=== PATIENT | male | born 1980 | race Caucasian/White ===

== ENCOUNTER 2017-09-21 08:19 | Emergency (ER) | payer SELFPAY ==
[2017-09-21 08:23] VITALS: BP 165/96
[2017-09-21] MEDS ORDERED: ACYCLOVIR 400 MG TAB PO ONE (08:50)
[2017-09-21] MEDS ORDERED: predniSONE 20 MG TAB PO ONE (08:50)
--- NOTE | 2017-09-21 08:52 | EDPHY ---
H & P Stated Complaint: RASH SOLE L FOOT, R SHOULDER PAIN Time Seen by Provider: 09/21/17 08:45 HPI/ROS: CHIEF COMPLAINT: Ft rash, right shoulder pain HISTORY OF PRESENT ILLNESS: The patient is a 37-year-old man who comes to the emergency department complaining of a painful vesicular rash to the bottom of his left foot. He 1st noticed it yesterday. It is similar to shingles see had in his left shoulder last year. He also complains of chronic right shoulder pain for the last 2 years. He has full range of motion but thinks that it is from an old shot put injury in high school. No new symptoms in his shoulder. REVIEW OF SYSTEMS: Constitutional: denies: chills, fever, recent illness, recent injury EENTM: denies: blurred vision, double vision, nose congestion Respiratory: denies: cough, shortness of breath Cardiac: denies: chest pain, irregular heart rate, lightheadedness, palpitations Gastrointestinal/Abdominal: denies: abdominal pain, diarrhea, nausea, vomiting, blood streaked stools Genitourinary: denies: dysuria, frequency, hematuria, pain Musculoskeletal: See HPI Skin: See HPI Neurological: denies: headache, numbness, paresthesia, tingling, dizziness, weakness Hematologic/Lymphatic: denies: blood clots, easy bleeding, easy bruising Immunologic/allergic: denies: HIV/AIDS, transplant EXAM: GENERAL: Well-appearing, well-nourished and in no acute distress. HEAD: Atraumatic, normocephalic. EYES: Pupils equal round and reactive to light, extraocular movements intact, sclera anicteric, conjunctiva are normal. ENT: TMs normal, nares patent, oropharynx clear without exudates. Moist mucous membranes. NECK: Normal range of motion, supple without lymphadenopathy or JVD. LUNGS: Breath sounds clear to auscultation bilaterally and equal. No wheezes rales or rhonchi. HEART: Regular rate and rhythm without murmurs, rubs or gallops. ABDOMEN: Soft, nontender, normoactive bowel sounds. No guarding, no rebound. No masses appreciated. BACK: No CVA tenderness, no spinal tenderness, step-offs or deformities EXTREMITIES: Normal range of motion of right shoulder and other extremities normal strength, no deformity, no pitting or edema. No clubbing or cyanosis. NEUROLOGICAL: Cranial nerves II through XII grossly intact. Normal speech, normal gait. 5/5 strength, normal movement in all extremities, normal sensation PSYCH: Normal mood, normal affect. SKIN: Vesicular rash to the left foot in L4 dermatome, painful, Source: Patient Exam Limitations: No limitations - Personal History Current Tetanus Diphtheria and Acellular Pertussis (TDAP): Unsure - Medical/Surgical History Hx Asthma: No Hx Chronic Respiratory Disease: No Hx Diabetes: No Hx Cardiac Disease: No Hx Renal Disease: No Hx Cirrhosis: No Hx Alcoholism: No Hx HIV/AIDS: No Hx Splenectomy or Spleen Trauma: No Other PMH: C6-7 [id number], - Family History Significant Family History: No pertinent family hx - Social History Smoking Status: Heavy smoker Alcohol Use: Sober Drug Use: None Constitutional: Initial Vital Signs Temperature (C) 36.8 C 09/21/17 08:20 Heart Rate 82 09/21/17 08:20 Respiratory Rate 16 09/21/17 08:20 Blood Pressure 165/96 H 09/21/17 08:20 O2 Sat (%) 96 09/21/17 08:20 O2 Delivery Mode Room Air Allergies/Adverse Reactions: influenza virus vaccine qs 2012- [From Single Use EZ Flu] Allergy (Severe, Verified 09/21/17 08:24) Swelling/neck,face,throat Home Medications: Medication Instructions Recorded Hydrocodone/APAP 5/325 [[place] 1 - 2 each PO Q4 PRN #14 tab 09/21/17 5/325] Valacyclovir HCl [Valtrex] 1,000 mg PO TID #21 tab 09/21/17 predniSONE 60 mg PO DAILY #15 tab 09/21/17 Medical Decision Making ED Course/Re-evaluation: 9:00 a.m. the patient appears to have a no other zoster type rash this time involving his foot. I will start him on steroids and pain medication and acyclovir. He will follow up with his primary. He also has chronic right shoulder pain. I recommended that he follow up with Orthopedics for this. He has no new acute issues. He has normal range of motion and strength and I do not feel that he would benefit from x-rays here in the department. He understands and agrees with this plan. We discussed indications for returning. Differential Diagnosis: Partial list of the Differential diagnosis considered include but were not limited to; zoster, rotator cuff injury, AC joint strain, cellulitis and although unlikely based on the history and physical exam, I also considered viral syndrome, gonorrhea. I discussed these differential diagnoses and the plan with the patient as well as the usual and expected course. The patient understands that the diagnosis is provisional and that in medicine we are not always correct and that further workup is often warranted. Usual and customary warnings were given. All of the patient's questions were answered. The patient was instructed to return to the emergency department should the symptoms at all worsen or return, otherwise to followup with the physician as we discussed. - Data Points Medications Given: Discontinued Medications Acyclovir (Acyclovir) 400 mg PO EDNOW ONE Stop: 09/21/17 08:51 Last Admin: 09/21/17 08:59 Dose: 400 mg Prednisone (Prednisone) 60 mg PO EDNOW ONE Stop: 09/21/17 08:51 Last Admin: 09/21/17 08:59 Dose: 60 mg Departure - Departure Disposition: Home, Routine, Self-Care Clinical Impression: Shingles rash Qualifiers: Herpes zoster complications: without complications Qualified Code(s): B02.9 - Zoster without complications Right shoulder pain Qualifiers: Chronicity: chronic Qualified Code(s): M25.511 - Pain in right shoulder; G89.29 - Other chronic pain; G89.29 - Other chronic pain Condition: Fair Instructions: Shingles (ED), Shoulder Pain (ED) Referrals: NONE *PRIMARY CARE P,. [Primary Care Provider] - As per Instructions Chepe Horn MD [Medical Doctor] - As per Instructions Prescriptions: Hydrocodone/APAP 5/325 [[place] 5/325] 1 - 2 each PO Q4 PRN #14 tab PRN Reason: Pain, Mild predniSONE 60 mg PO DAILY #15 tab Valacyclovir HCl [Valtrex] 1,000 mg PO TID #21 tab
== END 2017-09-21 09:18 | disposition home or self-care (01) ==
DX: B02.9 Zoster without complications (principal); M25.511 Pain in right shoulder; F17.200 Nicotine dependence, unspecified, uncomplicated
CPT/HCPCS: J7512

== ENCOUNTER 2017-10-17 14:38 | Emergency (ER) | payer SELFPAY ==
[2017-10-17] MEDS ORDERED: NS 500 ML IV ONE (14:52)
--- NOTE | 2017-10-17 14:52 | EDPHY ---
H & P Stated Complaint: syncope Time Seen by Provider: 10/17/17 14:50 HPI/ROS: CHIEF COMPLAINT: Syncope HISTORY OF PRESENT ILLNESS: The patient presents the emergency department after a syncopal episode. The patient reports he changed position and passed out. He was able to slowly fall to his elbows. He did not sustain any significant trauma. He denies any antecedent chest pain, palpitations or shortness of breath. The patient denies significant past medical history. He takes no regular prescription medications. He denies recent illness. He denies acute headache, numbness, weakness or abdominal pain. REVIEW OF SYSTEMS: A comprehensive 10 point review of systems is otherwise negative aside from elements mentioned in the history of present illness. Source: Patient - Personal History Current Tetanus/Diphtheria Vaccine: Unsure Current Tetanus Diphtheria and Acellular Pertussis (TDAP): Unsure - Medical/Surgical History Hx Asthma: No Hx Chronic Respiratory Disease: No Hx Diabetes: No Hx Cardiac Disease: No Hx Renal Disease: No Hx Cirrhosis: No Hx Alcoholism: No Hx HIV/AIDS: No Hx Splenectomy or Spleen Trauma: No Other PMH: C6-7 [id number], CVA - Social History Smoking Status: Heavy smoker - Physical Exam Exam: General Appearance: Alert, no distress Eyes: Pupils equal and round no pallor or injection ENT, Mouth: Mucous membranes moist Respiratory: There are no retractions, lungs are clear to auscultation Cardiovascular: Regular rate and rhythm Gastrointestinal: Abdomen is soft and nontender, no masses, bowel sounds normal Neurological: A&O, normal motor function, normal sensory exam, normal cranial nerves Skin: Warm and dry, no rashes Musculoskeletal: Neck is supple nontender Extremities: symmetrical, full range of motion Psychiatric: Patient is oriented X 3, there is no agitation Constitutional: Initial Vital Signs Temperature (C) 37 C 10/17/17 14:43 Heart Rate 101 H 10/17/17 14:43 Respiratory Rate 16 10/17/17 14:43 Blood Pressure 147/101 H 10/17/17 14:43 O2 Sat (%) 96 10/17/17 14:43 O2 Delivery Mode Room Air Allergies/Adverse Reactions: influenza virus vaccine qs [From Single Use EZ Flu] Allergy (Severe, Verified 10/17/17 14:43) Swelling/neck,face,throat Home Medications: Medication Instructions Recorded Excedrin Migraine Geltab 10/17/17 Tums 500MG (*) 10/17/17 Medical Decision Making - Diagnostics EKG Interpretation: EKG: Complete interpretation has been separately recorded in the [facility] archive. Summary impression: Sinus rhythm, rate 88 ED Course/Re-evaluation: The patient presents to the ED after an episode of vasovagal syncope. The patient has no significant past medical history. He developed positional syncope earlier today. He had no antecedent palpitations or chest pain. He is currently asymptomatic. EKG demonstrates sinus rhythm. The patient's CBC and electrolytes are within normal limits. The patient received a L of normal saline in the emergency department. He is ambulatory without acute complaints. I do feel he can be discharged home without further workup. He is advised to return to the ED for the development of any chest pain shortness of breath difficulty breathing or neurologic symptoms. Differential Diagnosis: Differential diagnosis considered includes dehydration, metabolic abnormality, arrhythmia, anemia - Data Points Laboratory Results: Laboratory Results 10/17/17 15:12 10/17/17 15:12 10/17/17 10/17/17 15:12 15:12 WBC 10.78 10^3/uL H 10^3/uL (3.80-9.50) RBC 4.92 10^6/uL 10^6/uL (4.40-6.38) Hgb 15.8 g/dL g/dL (13.7-17.5) Hct 45.1 % % (40.0-51.0) MCV 91.7 fL fL (81.5-99.8) MCH 32.1 pg pg (27.9-34.1) MCHC 35.0 g/dL g/dL (32.4-36.7) RDW 13.4 % % (11.5-15.2) Plt Count 282 10^3/uL 10^3/uL (150-400) MPV 10.5 fL fL (8.7-11.7) Neut % (Auto) 64.9 % % (39.3-74.2) Lymph % (Auto) 24.7 % % (15.0-45.0) Stephenson % (Auto) 8.5 % % (4.5-13.0) Eos % (Auto) 1.4 % % (0.6-7.6) Baso % (Auto) 0.2 % L % (0.3-1.7) Nucleat RBC Rel Count 0.0 % % (0.0-0.2) Absolute Neuts (auto) 7.00 10^3/uL H 10^3/uL (1.70-6.50) Absolute Lymphs (auto) 2.66 10^3/uL 10^3/uL (1.00-3.00) Absolute Monos (auto) 0.92 10^3/uL H 10^3/uL (0.30-0.80) Absolute Eos (auto) 0.15 10^3/uL 10^3/uL (0.03-0.40) Absolute Basos (auto) 0.02 10^3/uL 10^3/uL (0.02-0.10) Absolute Nucleated RBC 0.00 10^3/uL 10^3/uL (0-0.01) Immature Gran % 0.3 % % (0.0-1.1) Immature Gran # 0.03 10^3/uL 10^3/uL (0.00-0.10) Sodium 140 mEq/L mEq/L (135-145) Potassium 4.0 mEq/L mEq/L (3.3-5.0) Chloride 104 mEq/L mEq/L (97-110) Carbon Dioxide 25 mEq/l mEq/l (22-31) Anion Gap 11 mEq/L mEq/L (8-16) BUN 14 mg/dL mg/dL (7-23) Creatinine 1.0 mg/dL mg/dL (0.7-1.3) Estimated GFR > 60 Glucose 120 mg/dL H mg/dL (70-100) Calcium 9.2 mg/dL mg/dL (8.5-10.4) Medications Given: Discontinued Medications Sodium Chloride (Ns) 500 mls @ 0 mls/hr IV EDNOW ONE; Wide Open PRN Reason: Protocol Stop: 10/17/17 14:53 Last Admin: 10/17/17 15:20 Dose: 500 mls Departure - Departure Disposition: Home, Routine, Self-Care Clinical Impression: Syncope Condition: Good Instructions: Syncope (ED) Additional Instructions: 1. Please increase your fluid intake as mild dehydration may have been contributed to your day. 2. Your EKG and laboratory testing are within normal limits. 3. Return to the ED for any recurrent passing out, chest pain, difficulty breathing or other concerns. 4. You have been given the number of the arborer to follow up with in the event you continue to have problems passing out with standing. Referrals: Myrtle Woodard MD [Medical Doctor] - As per Instructions
--- NOTE | 2017-10-17 15:02 | CPEKG ---
Heart Rate: 88 RR Interval: 682 P-R Interval: 144 QRSD Interval: 78 QT Interval: 352 QTC Interval: 426 P Anderson: 52 QRS Anderson: 32 T Wave Anderson: -47 EKG Severity - ABNORMAL ECG - EKG Impression: SINUS RHYTHM Electronically Signed By: Krunal Moss 17-Oct-2017 16:27:19
[2017-10-17 15:28] LABS: PLATELET COUNT 282 10^3/uL (150-400)
[2017-10-17 16:52] VITALS: BP 147/87
== END 2017-10-17 16:52 | disposition home or self-care (01) ==
DX: R55 Syncope and collapse (principal); F17.200 Nicotine dependence, unspecified, uncomplicated; E86.9 Volume depletion, unspecified